=== PATIENT | female | born 1945 | race Caucasian/White ===

== ENCOUNTER 2023-06-09 15:21 | Emergency (ER) | payer MEDICARE, BC, SELFPAY ==
--- NOTE | 2023-06-09 16:13 | ED.GENADULT ---
HPI - General Adult General Chief complaint: Urogenital-Female Stated complaint: UTI, fatigue Time Seen by Provider: 06/09/23 16:44 Source: patient Mode of arrival: ambulatory Limitations: no limitations History of Present Illness HPI narrative: 78 year old woman w/ a hx of Afib w/ RVR presents today w/ complaints of urinary frequency and fatigue x1 week. She states she has been having diarrhea, headache, nausea, lower abdominal pain, and incontinence. She denies any flank pain, hematuria, dysuria, fever, chills, vomiting, chest pain, SOB, or difficulty breathing. She admits to having a history of UTIs. Recently just moved from [place] and has no established PCP. Onset (ago): week(s) (1) Location: genitals (urinary tract) Severity: mild Relieving factors: none Related Data Allergies Allergy/AdvReac Type Severity Reaction Status Date / Time Iodinated Contrast Media Allergy Hives Verified 06/09/23 16:16 [IV Contrast Dye] metoprolol Allergy Drowsy Verified 06/09/23 16:16 codeine AdvReac Nausea Verified 06/09/23 16:16 lactose AdvReac Diarrhea Verified 06/09/23 16:16 morphine AdvReac Nausea Verified 06/09/23 16:16 shrimp AdvReac Hives Verified 06/09/23 16:16 Review of Systems Review of Systems: Yes all other systems are reviewed and are negative [facility] Past Medical History Medical History (Updated 06/09/23 @ 18:15 by Zoie Bennett) Atrial fibrillation with RVR Cornea transplant recipient COVID-19 Diabetes type 2, controlled Fuchs' corneal dystrophy History of cardioversion HTN (hypertension) Hyperlipemia Implantable loop recorder present Lung nodules JONI on CPAP Tremor Surgical History (Updated 06/09/23 @ 18:15 by Zoie Bennett) History of radiofrequency ablation procedure for cardiac arrhythmia Social History Social History Smoked in Last 30 Days: No Use of substances other than those prescribed or required for medical reasons: No Advance Directives: No Advance Directives Information Provided: Yes Physical Exam ED Vital Signs: Vital Signs - 24 hr 06/09/23 16:16 06/09/23 18:11 Temperature 98.2 F 98.3 F Pulse Rate 62 61 Respiratory Rate 18 16 Blood Pressure 120/55 L 113/46 L Pulse Oximetry 95 96 Oxygen Delivery Method Room Air Room Air BMI result Body Mass Index 34.3 Appearance: Alert. Oriented X3. No acute distress. Head: normocephalic, atraumatic. Neck: Normal visual inspection. CVS: Normal heart rate and rhythm. Pulses normal. Respiratory: No respiratory distress. Breath sounds normal. Abdomen: Soft and nontender. Skin: Skin warm and dry. Normal skin color. Normal skin turgor. No rashes. Neuro/psych: Oriented X 3. No motor deficit. No sensory deficit. Normal speech and cognition. Course Course Course Narrative: RME- 78 year old female presents for evaluation of lower abdominal pain for the last week. Also complains of frequent urination and fatigue. Plan for labs and a UA Medical Decision Making Medical Decision Making [facility] Narrative: 78 year old woman w/ a hx of Afib w/ RVR presents today w/ complaints of urinary frequency and fatigue x1 week. On exam VSS, NAD, and no red flag symptoms (flank pain, dysuria, hematuria, etc.) present. No systemic symptoms present. Likely, viral syndrome vs. UTI. Unlikely, gastritis, nephrolithiasis, pyelonephirits, bowel impaction, or STD. Plan: supportive care, UA & culture, labs, antibiotics if (+) UTI Differential Diagnosis Differential Diagnoses: The differential diagnosis associated with the presentation includes gastritis, nephrolithiasis, pyelonephirits, bowel impaction, or STD. Lab Data [facility] Lab Attestation statement: I reviewed the patient's lab results. mild leukocytosis, no other metatbolic derrangement 06/09/23 16:36 06/09/23 16:36 Labs: Lab Results 06/09/23 06/09/23 06/09/23 Range/Units 16:36 16:36 16:36 WBC 11.9 H (4.8-10.8) X10*3/uL RBC 4.51 (4.20-5.50) X10*6/uL Hgb 13.1 (12.0-16.0) g/dl Hct 40.9 (37.0-47.0) % MCV 90.7 (80.0-98.0) fL MCH 29.0 (27.0-33.0) pg MCHC 32.0 (31.0-35.0) g/dl RDW 13.0 (11.0-16.0) % Plt Count 234 (160-400) X10*3/uL MPV 10.5 (9.4-12.3) fL Immature Gran % (Auto) 0.7 H (0.0-0.4) % Neut % (Auto) 72.2 (45-73) % Lymph % (Auto) 15.1 L (20-40) % [place] % (Auto) 9.5 (2-11) % Eos % (Auto) 1.9 (0-4) % Baso % (Auto) 0.6 (0-2) % Lymph # (Auto) 1.8 (1.2-4.9) X10*3/uL [place] # (Auto) 1.1 (0.1-1.2) X10*3/uL Eos # (Auto) 0.2 (0.0-0.4) X10*3/uL Baso # (Auto) 0.1 (0.0-0.2) X10*3/uL Abs Immat Gran (auto) 0.08 H (0.00-0.03) X10*3/uL Absolute Neuts (auto) 8.6 H (2.0-8.3) x10*3/uL Absolute Nucleated RBC 0.000 (0.0-0.012) X10*3/uL Nucleated RBC % (auto) 0.0 (0.0-0.2) /100WBC Sodium 138 (135-145) mmol/L Potassium 4.7 (3.3-5.1) mmol/L Chloride 103 (96-108) mmol/L Carbon Dioxide 28 (22-29) mmol/L Anion Gap 12 (12-20) BUN 20 H (9-16) mg/dL Creatinine 0.88 (0.5-1.4) mg/dL Estim Creat Clear Calc 50.8 Estimated GFR > 60 Random Glucose 99 (60-115) mg/dL Calcium 10.6 H (8.4-10.2) mg/dL Total Bilirubin 0.3 (0.0-1.0) mg/dL AST 22 (5-31) U/L ALT 22 (0-31) U/L Alkaline Phosphatase 93 (39-117) U/L Total Protein 8.1 H (6.5-8.0) g/dL Albumin 4.7 (3.5-5.0) g/dL Lipase 13 (8-78) U/L Urine Color Dark Yellow Urine Appearance Clear Urine pH 6.0 (5.0-9.0) Ur Specific [place] 1.025 (1.005-1.025) Urine Protein Negative (Neg-Trace) mg/dL Urine Glucose (UA) Negative (Negative) mg/dL Urine Ketones Trace (Negative) mg/dL Urine Blood Negative (Negative) Urine Nitrite Negative (Negative) Ur Leukocyte Esterase Small (1+) H (Negative) Urine RBC 0-2 (0-2) /HPF Urine WBC 0-5 (0-5) /HPF Ur Squamous Epith Cells 0-2 (0-2) /HPF Urine Bacteria None Seen (None Seen) Hyaline Casts 3-5 (0-2) /LPF Independent Historian Clinical information obtained from an independent historian. History obtained from or confirmed by: Spouse Prescription Management I considered prescription management with: Antibiotic however UA negative Social Determinants Patient?s care significantly limited by Social Determinants of Health including: Other Social Determinant of Health (no PCP) Critical Care Time Critical Care Time Critical Care Time: No Discharge Plan Discharge Clinical Impression: Increased urinary frequency Patient Disposition: Home, Self-Care Instructions: Urinary Urgency and Frequency (DC) Additional Instructions: You presented to the emergency department today with urinary frequency, urgency, and fatigue. Your labs were unremarkable, and your urine was negative for a urinary tract infection. You should continue to drink fluids as tolerated. If your symptoms worsen, you have a high fever, or there is blood in your urine you should return to the emergency room. Below are some recommendations so that you can establish primary care. Referrals: [facility] [Provider Group] [facility] [place] [Provider Group] [facility] [place] [Provider Group]
[2023-06-09 16:16] VITALS: BP 120/55; PULSE 62; RESP 18; TEMP 36.8; O2SAT 95; BMI 34.3
[2023-06-09 16:39] LABS: MANUAL DIFF FLAG NO
[2023-06-09 16:42] LABS: Appearance Urine Clear; Color Urine Dark Yellow; Glucose Urine UA Negative (Negative); Leukocyte Esterase Urine Small (1+) (Negative); Nitrite Urine Negative (Negative); Specific Gravity - Urine 1.025 (1.005-1.025); UMIC TRIGGER UACC YES; Urine Blood Negative (Negative); Urine Ketones Trace mg/dL (Negative); Urine Protein Negative (Neg-Trace)
[2023-06-09 16:43] LABS: Basophils Absolute Auto 0.1 X10*3/uL (0.0-0.2); Basophils Percent Auto 0.6 % (0-2); Eosinophils Absolute Auto 0.2 X10*3/uL (0.0-0.4); Eosinophils Percent Auto 1.9 % (0-4); Hematocrit 40.9 % (37.0-47.0); Hemoglobin 13.1 g/dl (12.0-16.0); Imm Gran Abs Auto 0.08 X10*3/uL (0.00-0.03); Imm Gran Pct Auto 0.7 % (0.0-0.4); Lymphocytes Absolute Auto 1.8 X10*3/uL (1.2-4.9); Lymphocytes Percent Auto 15.1 % (20-40); Mean Corpuscular Volume 90.7 fL (80.0-98.0); Mean Platelet Volume 10.5 fL (9.4-12.3); Monocytes Absolute Auto 1.1 X10*3/uL (0.1-1.2); Monocytes Percent Auto 9.5 % (2-11); Neutrophils Absolute Auto 8.6 x10*3/uL (2.0-8.3); Neutrophils Percent Auto 72.2 % (45-73); Platelet Count 234 X10*3/uL (160-400); Red Blood Count 4.51 X10*6/uL (4.20-5.50); White Blood Count 11.9 X10*3/uL (4.8-10.8)
[2023-06-09 17:00] LABS: Alanine Aminotransferase 22 U/L (0-31); Albumin Level 4.7 g/dL (3.5-5.0); Alkaline Phosphatase 93 U/L (39-117); Anion Gap 12 (12-20); Aspartate Amino Transferase 22 U/L (5-31); Bilirubin Total 0.3 mg/dL (0.0-1.0); Blood Urea Nitrogen 20 mg/dL (9-16); Calcium 10.6 mg/dL (8.4-10.2); Carbon Dioxide 28 mmol/L (22-29); Chloride 103 mmol/L (96-108); Creatinine Clr Calc Pharmacy 50.8; Estimated Glomerular Filt Rate > 60; Glucose Random 99 mg/dL (60-115); Lipase 13 U/L (8-78); Potassium 4.7 mmol/L (3.3-5.1); Sodium 138 mmol/L (135-145); Total Protein 8.1 g/dL (6.5-8.0)
[2023-06-09 17:09] LABS: Bacteria Urine None Seen (None Seen); RBC Urine 0-2 /HPF (0-2); Squamous Epithelial Cell Urine 0-2 /HPF (0-2); UACC Culture Trigger YES; WBC Urine 0-5 /HPF (0-5)
[2023-06-09 18:11] VITALS: BP 113/46; PULSE 61; RESP 16; TEMP 36.8; O2SAT 96
--- NOTE | 2023-06-09 18:25 | PC.NURSE ---
calm, coopeartive, walked out well w/walker. no distress.
== END 2023-06-09 18:26 | disposition home or self-care (01) ==
PROVIDERS: Physician Assistant; Emergency Provider Emergency Medicine Emergency Medical Services
DX: R35.0 Frequency of micturition (principal); R53.83 Other fatigue; I48.91 Unspecified atrial fibrillation; R19.7 Diarrhea, unspecified; R00.0 Tachycardia, unspecified; R51.9 Headache, unspecified; R11.0 Nausea; R10.30 Lower abdominal pain, unspecified; E11.9 Type 2 diabetes mellitus without complications; I10 Essential (primary) hypertension; E78.5 Hyperlipidemia, unspecified; Z95.818 Presence of other cardiac implants and grafts
CPT/HCPCS: 36415; 80053; 81001; 83690; 85025; 87086; 99283; 99284